=== PATIENT | female | born 1960 | race Caucasian/White ===

== ENCOUNTER → 2019-11-18 18:26 | Outpatient (CLI) | payer BC, SELFPAY ==
--- NOTE | ~2019-11-18 | MM_ITS ---
EXAMINATION: MM screening [facility] BI w berta HISTORY: Screening mammogram TECHNIQUE: Craniocaudal and mediolateral oblique 3-D tomosynthesis images were obtained and synthetic 2-D images were generated. CAD analysis was submitted and interpreted. COMPARISON: Comparison to multiple prior studies sequentially, with oldest reviewed study dated 11/25. BREAST PARENCHYMAL COMPOSITION: There are scattered areas of fibroglandular density. FINDINGS: There is no evidence of suspicious mass, calcification, or architectural distortion to sugg est malignancy in either breast. There has been no suspicious interval change. IMPRESSION: 1. No mammographic evidence of malignancy. 2. Recommend routine screening mammography in one year. BI-RADS Category 1: Negative Reviewed, dictated and finalized at location A. [employer]
== END ==
PROVIDERS: Visit Provider Obstetrics & Gynecology
DX: Z12.31 Encounter for screening mammogram for malignant neoplasm of breast (principal)
CPT/HCPCS: 77063; 77067

== ENCOUNTER 2020-05-14 08:57 | Emergency (ER) | payer BC, SELFPAY ==
[2020-05-14 09:07] VITALS: BP 132/55; PULSE 77; RESP 16; TEMP 37.2; O2SAT 100
--- NOTE | 2020-05-14 09:10 | ED.GENADULT ---
HPI - General Adult General Chief complaint: Unspecified Stated complaint: jaw pain Time Seen by Provider: 05/14/20 09:10 Source: patient and RN notes reviewed History of Present Illness HPI narrative: Patient is a 59-year-old female who presents the urgent care with complaints of left-sided jaw pain due to swollen salivary gland. Patient states it started on Thursday and is become very painful. Patient states that she has had 2 occurrences in the past, with the first 1 being in 2010 with both sides swollen. Patient has used warm compress over the last couple days without any improvement. Patient denies of any fever, nausea, vomiting. No other acute complaints. No acute distress noted. Patient read the plan of care. Related Data Home Medications Medication Instructions Recorded Confirmed olmesartan-hydrochlorothiazide tablet 05/14/20 olmesartan-hydrochlorothiazide tablet 05/14/20 05/14/20 Allergies Allergy/AdvReac Type Severity Reaction Status Date / Time morphine Allergy Unknown Gastrointestinal Verified 05/14/20 09:15 Upset TAPE AdvReac Unknown KERRY SKIN Uncoded 05/14/20 09:16 Review of Systems Review of Systems: Narrative: CONSTITUTIONAL: Denies fever, chills, or sweats. EYES: Denies visual changes, redness, or discharge. ENT: Denies rhinorrhea, congestion, sore throat, or otalgia. Reports of right-sided jaw pain due to swelling of salivary gland CARDIOVASCULAR: Denies chest pain, palpitations, or edema. RESPIRATORY: Denies cough or dyspnea. GASTROINTESTINAL: Denies abdominal pain, nausea, vomiting, or diarrhea. GENITOURINARY: Denies dysuria or hematuria. SKIN: Denies rash or itching. MUSCULOSKELETAL: Denies back pain, joint pain, or myalgia. NEUROLOGIC: Denies headache, numbness, or weakness. All other systems reviewed are negative, except as documented in HPI. [facility] Family History Family History (Updated 05/25/14 @ 07:13 by DOCTOR UNKNOWN) Mother Family history of arthritis Social History Social History Smoking status: Never smoker Alcohol intake: never Comments At the time of my signature, I reviewed and agree with the nursing past medical, surgical, social, and family history. There is no relevant family history pertinent to the patient complaint. Exam Narrative: Exam Narrative: GENERAL: This is a well-nourished, well-developed patient, in no apparent distress. HEAD: normocephalic, atraumatic. EYES: PERRL. Sclera clear/white. Vision is grossly intact. EARS: External ears normal NOSE: External nose normal with no obvious nasal discharge, nares without redness, no rhinorrhea. THROAT: Mucous membranes moist, posterior pharynx clear. NECK: Neck supple, tender left submandibular lymphadenopathy; moderate swelling of the left salivary gland (sialadenitis) SKIN: warm, intact with no suspicious lesions or rash, good texture and turgor. NEURO: awake, alert, and oriented to person, place and time. There were no obvious focal neurologic abnormalities. EXTREMITIES: No clubbing, cyanosis, or edema. Course Vital Signs Vital signs: Vital Signs Temperature 99 F 05/14/20 09:07 Pulse Rate 77 05/14/20 09:07 Respiratory Rate 16 05/14/20 09:07 Blood Pressure 132/55 L 05/14/20 09:07 Pulse Oximetry 100 05/14/20 09:07 Temperature 99 F 05/14/20 09:07 Pulse Rate 77 05/14/20 09:07 Respiratory Rate 16 05/14/20 09:07 Blood Pressure 132/55 L 05/14/20 09:07 Pulse Oximetry 100 05/14/20 09:07 Reviewed Medical Decision Making MDM Narrative Medical decision making narrative: Advised the patient to complete oral antibiotic regimen as prescribed. Be sure to eat and drink with the medication. Make sure to continue warm compress and use lemon drops. Continue to drink liquids. You want to keep your salivary glands flowing. It will help release the pressure. In most instances, your condition is viral and not bacterial. However we will treat with the antibiotic due to recur
== END 2020-05-14 09:28 | disposition home or self-care (01) ==
PROVIDERS: Emergency Provider Nurse Practitioner Family
DX: K11.20 Sialoadenitis, unspecified (principal); I10 Essential (primary) hypertension; E11.9 Type 2 diabetes mellitus without complications
CPT/HCPCS: 99213; G0463

== ENCOUNTER → 2021-01-11 17:59 | Outpatient (CLI) | payer BC, SELFPAY ==
--- NOTE | ~2021-01-11 | MM_ITS ---
EXAMINATION: MM screening [facility] BI w berta HISTORY: Screening mammogram TECHNIQUE: Craniocaudal and mediolateral oblique 3-D tomosynthesis images were obtained and synthetic 2-D images were generated. CAD analysis was submitted and interpreted. COMPARISON: November 18, 2019, December 16, 2017, July 27, 2014 bilateral digital screening mammogram examinations BREAST PARENCHYMAL COMPOSITION: There are scattered areas of fibroglandular density. FINDINGS: . There is no evidence of suspicious mass, calcification, or architectural distortion to romero ggest malignancy in either breast. There has been no suspicious interval change. IMPRESSION: 1. No mammographic evidence of malignancy. 2. Recommend routine screening mammography in one year. BI-RADS Category 1: Negative Reviewed, dictated and finalized at location A.
== END ==
PROVIDERS: Visit Provider Obstetrics & Gynecology
DX: Z12.31 Encounter for screening mammogram for malignant neoplasm of breast (principal)
CPT/HCPCS: 77063; 77067

== ENCOUNTER → 2021-01-11 18:02 | Outpatient (CLI) | payer BC, SELFPAY ==
--- NOTE | ~2021-01-11 | XR_ITS ---
XR thoracic spine 2V DATE: 01/11/2021 19:10 INDICATION: Left shoulder pain TECHNIQUE: Standing AP, lateral and swimmer views COMPARISON: None FINDINGS: There is moderate degenerative disease and retrolisthesis at C4-5. Moderately severe degene rative disc disease at C5-6. There is mild anterolisthesis at C6-7. There is diffuse osteopenia. There is mild levoscoliosis of the upper thoracic spine. There is mild to moderate degenerative spurring of the thoracic spine primarily. No fracture or dislocation or bone destruction. The thoracic pedicles are intact. No paraspinal soft tissue thickening. IMPRESSION: Extensive degenerative changes of the cervical spine Diffuse osteopenia Mild levoscoliosis of the upper thoracic spine Mild to moderate degenerative spurring of the thoracic spine. Reviewed, dictated and finalized at location A.
--- NOTE | ~2021-01-11 | XR_ITS ---
XR shoulder LT min 2V DATE: 01/11/2021 19:10 INDICATION: Left shoulder pain TECHNIQUE: 4 views COMPARISON: None FINDINGS: Mild degenerative spurring of the left acromioclavicular joint. No fracture or dislocation, periosteal reaction or bone destruction or abnormal soft tissue calcifica tion. Levoscoliosis of the upper thoracic spine. Degenerative spurring of the thoracic spine. Aortic arch calcification and mild aortic unfolding IMPRESSION: Mild degenerative spurring at the left acromioclavicular joint Reviewed, dictated and finalized at location A.
== END ==
DX: M85.812 Other specified disorders of bone density and structure, left shoulder (principal); M85.88 Other specified disorders of bone density and structure, other site; M50.30 Other cervical disc degeneration, unspecified cervical region
CPT/HCPCS: 72070; 73030

== ENCOUNTER → 2021-07-25 11:10 | Outpatient (CLI) | payer BC, SELFPAY ==
--- NOTE | ~2021-07-25 | DEXA_ITS ---
Bone Density Report Name: Paola Calvillo Age: 60 Sex: Female Ethnicity: White Date of : 1960 Indication: postmenopausal; screening for osteoporosis; hysterectomy; Referring Provider: ADELINA CRUZ Study: Bone densitometry was performed. Exam Date: July 25, 2021 Accession number: [id number] Bone Density: Region BMD T-score Z-score Classification AP Spine (L1-L4) 1.276 2.1 3.5 Normal Femoral Neck (Left) 0.871 0.2 1.5 Normal Total Hip (Left) 1.189 2.0 3.0 Normal Femoral Neck (Right) 0.871 0.2 1.5 Normal Total Hip (Right) 1.161 1.8 2.8 Normal Total Hip Mean 1.175 1.9 2.9 Normal World Health Organization criteria for BMD impression classify patients as: Normal (T-score at or above -1.0), Osteopenia (T-score between -1.0 and -2.5), or Osteoporosis (T-score at or below -2.5). 10-year Fracture Risk: FRAX not reported because: All T-scores for Spine Total, Hip Total, Femoral Neck at or above -1.0 Previous Exams: Region Exam Age BMD T-score BMD Change BMD Change Date g/cm2 vs Baseline vs Previous AP Spine(L1-L4) 07/25/2021 60 1.276 2.1 0.054 0.086 11/25/2011 51 1.190 1.3 -0.032* -0.032* 12/10/2005 45 1.222 1.6 Total Hip(Left) 07/25/2021 60 1.189 2.0 0.070 0.108 11/25/2011 51 1.081 1.1 -0.038* -0.038* 12/10/2005 45 1.119 1.5 Total Hip(Right) 07/25/2021 60 1.161 1.8 0.073 0.037 11/25/2011 51 1.124 1.5 0.036* 0.036* 12/10/2005 45 1.088 1.2 *Denotes significance at 95% confidence level, LSC for AP Spine = 0.022 g/cm2, LSC for Total Hip = 0.027 g/cm2 Clinical Information Provided by Patient: Has used the following medications: Vitamin D, Calcium, MTV Has the following medical conditions: Hysterectomy Patient maximum height was 65.0 Menopause Age: 40 No regular weight bearing exercise Drinks caffeinated beverages Onset of menses at age 11 Number of children 3 Impression: The patient has normal bone mass. No significant bone loss was observed. Discussion: BONE DENSITY IS ABOVE THE MINIMUM DESIRABLE LEVEL AT ALL SKELETAL SITES TESTED. This patient?s bone mineral density is above the minimum desirable level (T-score -1.0 or better) at all sites measured. The patient should follow a healthful lifestyle (good nutrition with adequate calcium and vitamin D, and appropriate weight-b
== END ==
PROVIDERS: Visit Provider Obstetrics & Gynecology Gynecology
DX: Z78.0 Asymptomatic menopausal state (principal)
CPT/HCPCS: 77080

== ENCOUNTER → 2021-11-30 11:44 | Outpatient (CLI) | payer BC, SELFPAY ==
--- NOTE | ~2021-11-30 | XR_ITS ---
XR knee LT min 4V 11/30/2021 12:11 Indication: Left knee pain Procedure: 4 views left knee Comparison: No prior studies for comparison. Findings: There is mild-moderate osteoarthritis of the left knee, most advanced at the medial compart ment. There are loose bodies posterior to the joint space. No fracture or traumatic malalignment. Impression: 1: Mild-moderate osteoarthritis of the left knee. Reviewed, dictated and finalized at location A. DYER Impression: 1: Mild-moderate osteoarthritis of the left knee.
== END ==
DX: M25.572 Pain in left ankle and joints of left foot (principal); M17.12 Unilateral primary osteoarthritis, left knee
CPT/HCPCS: 73564

== ENCOUNTER 2022-11-23 09:25 | Emergency (ER) | payer BC, SELFPAY ==
[2022-11-23 09:34] VITALS: BP 120/69; PULSE 72; RESP 20; TEMP 36.3; O2SAT 100
--- NOTE | 2022-11-23 10:10 | ED.EYEPROB ---
HPI - Eye Problem General Chief complaint: Eye Problems Stated complaint: pink eye Source: patient Mode of arrival: ambulatory Limitations: no limitations History of Present Illness HPI Narrative: Patient presents with reports of left eye complaints. She states she woke from sleep this morning with redness to left eye with associated crusted drainage and blurred vision. Denies other visual disturbance. Over the last few days she has had sinus congestion and thick green drainage from her nose. Those symptoms are improving. No recent sick contacts to her knowledge. No fever, chills, sore throat, cough, shortness of breath. She wears glasses. She does not wear contacts. She is diabetic but blood sugars at home are controlled on metformin. Related Data Home Medications Medication Instructions Recorded Confirmed olmesartan 20 1 tablet PO DAILY 05/14/20 11/23/22 mg-hydrochlorothiazide 12.5 mg tablet metformin 1,000 mg tablet 1,000 mg PO DIRECTED 11/23/22 11/23/22 olmesartan 40 1 tablet PO DIRECTED 11/23/22 11/23/22 mg-hydrochlorothiazide 25 mg tablet tolterodine 4 mg capsule,extended 4 mg PO DAILY 11/23/22 11/23/22 release 24 hr ([facility] [place]) Allergies Allergy/AdvReac Type Severity Reaction Status Date / Time morphine Allergy Unknown Gastrointestinal Verified 11/23/22 10:12 Upset TAPE AdvReac Unknown KERRY SKIN Uncoded 05/14/20 09:16 Review of Systems Review of Systems: CONSTITUTIONAL: Denies fever, chills, or sweats. EYES: Reports redness and drainage from the left eye as well as blurred vision in that. ENT: Reports sinus congestion and drainage. CARDIOVASCULAR: Denies chest pain, palpitations, or edema. RESPIRATORY: Denies cough or dyspnea. GASTROINTESTINAL: Denies abdominal pain, nausea, vomiting, or diarrhea. GENITOURINARY: Denies dysuria or hematuria. SKIN: Denies rash or itching. MUSCULOSKELETAL: Denies back pain, joint pain, or myalgia. NEUROLOGIC: Denies headache, numbness, dizziness, or weakness. PSYCHIATRIC: Denies anxiety or depression. [facility] Past Medical History Medical History Diabetes Surgical History Surgical History History of knee surgery Family History Family History (Updated 11/23/22 @ 10:22 by TREVOR Weinberg, ) Mother Family history of arthritis Other Malignant neoplasm of prostate Social History Social History Smoking status: Never smoker Alcohol intake: never Gender identity (if verbalized by the patient): Female Spiritual care concerns: No Exam Narrative: GENERAL: Well-appearing, well-nourished, and in no acute distress. HEAD: Normocephalic, atraumatic. EYES: Left conjunctival injection. PERRLA and EOMI. ENT: Nares clear, no rhinorrhea or epistaxis. Mucous membranes moist. Oropharynx without tonsillar hypertrophy exudate or other lesions. Bilateral TMs pearly reardon nonbulging NECK: Supple. No adenopathy or masses. No carotid bruits or JVD CHEST: Clear to auscultation. No respiratory distress. No wheezes rales or rhonchi HEART: Regular rate and rhythm. No murmur heard. Normal peripheral pulses. ABDOMEN: Soft, nontender, nondistended, normal active bowel sounds. EXTREMITIES: Normal range of motion. No edema. SKIN: Warm, dry, no rash. NEURO: No focal deficits. Alert and oriented x3. PSYCH: Normal mood and affect. Course Course Emergency Course: This is a 62-year-old female who presented for evaluation of redness and drainage from left eye with blurred vision. Exam is consistent with conjunctivitis. Treat with erythromycin. Follow-up outpatient for further evaluation treatment go to ER for worsening symptoms. Patient in agreement with plan of care. Level of Care: Express Care Visit Vital Signs Vital signs: Vital Signs Temperature 36.3 C
== END 2022-11-23 10:16 | disposition home or self-care (01) ==
PROVIDERS: Emergency Provider Nurse Practitioner
DX: H10.32 Unspecified acute conjunctivitis, left eye (principal); E11.9 Type 2 diabetes mellitus without complications
CPT/HCPCS: 99213; G0463

== ENCOUNTER 2023-03-27 08:18 | Outpatient (CLI) | payer BC, SELFPAY ==
--- NOTE | ~2023-03-27 | MM_ITS ---
EXAMINATION: MM screening [facility] BI w berta HISTORY: Screening mammogram TECHNIQUE: Craniocaudal and mediolateral oblique 3-D tomosynthesis images were obtained and synthetic 2-D images were generated. CAD analysis was submitted and interpreted. COMPARISON: January 11, 2021, November 18, 2019, December 16, 2017 bilateral screening mammogram examinati ons BREAST PARENCHYMAL COMPOSITION: There are scattered areas of fibroglandular density. FINDINGS: Stable approximately 6 mm opacity in the inferomedial right periareolar area since December. There is no evidence of suspicious mass, calcification, or architectural distortion to sugges t malignancy in either breast. There has been no suspicious interval change. IMPRESSION: 1. No mammographic evidence of malignancy. 2. Recommend routine screening mammography in one year. BI-RADS Category 1: Negative Reviewed, dictated and finalized at location A.
== END 2023-03-27 08:19 | disposition home or self-care (01) ==
PROVIDERS: PCP Hospitalist; Visit Provider Obstetrics & Gynecology
DX: Z12.31 Encounter for screening mammogram for malignant neoplasm of breast (principal)
CPT/HCPCS: 77063; 77067